=== PATIENT | male | born 1980 | race Caucasian/White ===

== ENCOUNTER 2018-06-20 02:11 | Emergency (ER) | payer OTHER ==
[~2018-06-20] VITALS: Ht 167.6 cm; Wt 86.2 kg
[2018-06-20] MEDS ORDERED: LEVSIN/SL0.125 MG SL (05:31)
== END 2018-06-20 05:40 | disposition home or self-care (01) ==
LOC: ER 02:11
DX: R10.32 Left lower quadrant pain (principal)

== ENCOUNTER 2021-05-23 06:52 | Emergency (ER) | payer OTHER ==
[~2021-05-23] VITALS: Ht 167.6 cm; Wt 89.8 kg
[~2021-05-23 06:52] MED LIST: LEVSIN/SL0.125 MG SL
== END 2021-05-23 08:18 ==
LOC: ER 06:52
DX: S60.454A Superficial foreign body of right ring finger, initial encounter (principal)